=== PATIENT | male | born 1960 | race Caucasian/White ===

== ENCOUNTER 2024-08-23 05:25 | Emergency (ER) | payer SELFPAY ==
[2024-08-23 05:49] VITALS: BP 149/89
[2024-08-23] MEDS: MOTRIN 600 MG PO (07:24)
--- NOTE | 2024-08-23 07:26 | ED.GENMED ---
History of Present Illness
<Leona Zhang MD, Resident - Last Filed: 08/23/24 08:06>
General
Chief Complaint: Musculo-Skeletal Complaint
Source: patient
Exam Limitations: none
Time Seen by Provider: 08/23/24 06:30
Nursing documentation reviewed up to this point in time: agreed with
History of Present Illness
History of Present Illness:
Mr. Casimiro Jackman is a 64yoM with a PMH of scoliosis (s/p spinal fusion with rods 1990) who is presenting with an exacerbation of bilateral hip pain.
The b/l hip pain started 6 months ago, with the L>R. Overnight, the pain grew to 10/10 overnight, kept him awake, and radiated to his knees. He states his knee pain is mild. He reports the pain is constant, whether he is moving, staying still,
sitting, walking, or sleeping. He states his sleep is significantly reduced due to pain. He sleeps on one side until he can't tolerate the pain and then switches to the other side. He works in [employer] and lifts heavy regularly for his job.
He reports he held off seeking medical attention for hip pain for months due to not having health insurance. He states he does not have the option of employer-provided health insurance and had not heard of the [employer], but is very interested in
learning more. He has not sought medical care in decades. He states his social security benefits start in a few days on August 28.
His past surgical history includes vascular surgery for hyperhidrosis in his underarms and palms.
He asked for the exit door to smoke. He expressed disinterest in a nicotine patch.
Past History
<Leona Zhang MD, Resident - Last Filed: 08/23/24 08:06>
Past History
ED Past Surgical History: Other (rhinoplasty x3)
Social History
Tobacco: Smoker
Phy Exam
<Leona Zhang MD, Resident - Last Filed: 08/23/24 08:06>
Physical Exam
Physical Exam:
On MSK exam,
Hip flexion, SAMANTHA & FADIR limited by pain.
Gait non-ataxic, negative Tredelenberg. Patient states slower than usual
5/5 strength to flexion at hips, flexion and extension at knees
Full ROM to extension, abduction, adduction
Spine: full ROM to flexion, extension, and L & R flexion.
Vascular:
Pulses: 2+ R posterior tibial, 1+ L posterior tibial
Heart: RRR
Lungs: CTAB
GI: normal bowel sounds
Course
<Leona Zhang MD, Resident - Last Filed: 08/23/24 08:06>
Orders/Labs/Results
Orders:
Orders
08/23/24 07:07
Ibuprofen [Motrin] 600 mg PO NOW STA
Pelvis, 1 or 2 Views CR [CR Pelvis - 1 Or 2 Views ] Urgent
Comment:
Reason For Exam: pain
08/23/24 07:08
Thoracic Spine 3 Views CR [CR Thoracic Spine 3 Views] Urgent
Comment:
Reason For Exam: pain surgery in past
08/23/24 07:33
Urinalysis Reflex To Culture Urgent
Date Specimen was Collected: 08/23/24
Time Specimen was Collected: 07:27
Urine Microscopic Reflex Cult Urgent
08/23/24 08:00
Nicotine [Nicoderm Transdermal] 21 mg TRANSDERM DAILY
Abnormal Lab Results
08/23/24
07:33
Urine Ketones 3+ A
(Negative)
Ur Occult Blood Reflex 1+ A
(Negative)
Urine RBC 3-6 A /HPF
(0-2)
Urine Bacteria (Reflex) Few A
(Negative)
Urine Albumin (Reflex) 2+ A
(Neg - Trace)
Vital Signs
Initial and Last Documented VS:
Initial Vital Signs
Temp Pulse Resp BP Pulse Ox
98.5 F 89 16 149/89 98
08/23/24 05:49 08/23/24 05:49 08/23/24 05:49 08/23/24 05:49 08/23/24 05:49
Last Documented Vital Signs
Temp Pulse Resp BP Pulse Ox
98.5 F 89 16 149/89 98
08/23/24 05:49 08/23/24 05:49 08/23/24 05:49 08/23/24 05:49 08/23/24 07:28
<Sancho Dewey, DO - Last Filed: 08/23/24 08:09>
Orders/Labs/Results
Orders:
Orders
08/23/24 07:07
Ibuprofen [Motrin] 600 mg PO NOW STA
Pelvis, 1 or 2 Views CR [CR Pelvis - 1 Or 2 Views ] Urgent
Comment:
Reason For Exam: pain
08/23/24 07:08
Thoracic Spine 3 Views CR [CR Thoracic Spine 3 Views] Urgent
Comment:
Reason For Exam: pain surgery in past
08/23/24 07:33
Urinalysis Reflex To Culture Urgent
Date Specimen was Collected: 08/23/24
Time Specimen was Collected: 07:27
Urine Microscopic Reflex Cult Urgent
08/23/24 08:00
Nicotine [Nicoderm Transdermal] 21 mg TRANSDERM DAILY
Abnormal Lab Results
08/23/24
07:33
Urine Ketones 3+ A
(Negative)
Ur Occult Blood Reflex 1+ A
(Negative)
Urine RBC 3-6 A /HPF
(0-2)
Urine Bacteria (Reflex) Few A
(Negative)
Urine Albumin (Reflex) 2+ A
(Neg - Trace)
Vital Signs
Initial and Last Documented VS:
Initial Vital Signs
Temp Pulse Resp BP Pulse Ox
98.5 F 89 16 149/89 98
08/23/24 05:49 08/23/24 05:49 08/23/24 05:49 08/23/24 05:49 08/23/24 05:49
Last Documented Vital Signs
Temp Pulse Resp BP Pulse Ox
98.5 F 89 16 149/89 98
08/23/24 05:49 08/23/24 05:49 08/23/24 05:49 08/23/24 05:49 08/23/24 07:28
<Leona Zhang MD, Resident - Last Filed: 08/23/24 08:06>
MDM/Problems Addressed
MDM/Problems Addressed:
Mr. Jackman is a 64yoM with a PMH of scoliosis (s/p spinal fusion with rods in 1990) who presents with an acute exacerbation of bilateral hip pain. Given the bilateral degenerative hip changes on x-ray, osteoarthritis is the most likely cause.
Differential:
Osteoarthritis of b/l hip
Pain due to instrumentation from spinal fusion (scoliosis)
Nephrolithiasis
Plan:
Pelvis x-ray
Spinal x-ray to evaluate scoliosis instrumentation
Urinalysis
Motrin for pain control
Nicotine patch for nicotine withdrawal
Social work consult for health insurance education & schedule PCP visit at [facility] clinic for underinsured
Acute Exacerbation and/or Progression of Chronic Illness:
scoliosis
Acute Exacerbation and/or Progression of Chronic Illness: Other (b/l hip pain)
<Leona Zhang MD, Resident - Last Filed: 08/23/24 08:06>
*Pulse Oximetry
SaO2: 98
Oxygen Mode of Delivery: Room air
<Sancho Dewey, DO - Last Filed: 08/23/24 08:09>
*Radiology
Radiology exam reviewed: radiology read reviewed
*Pulse Oximetry
Patient hypoxic: no
*Critical Care Note
Total Time (30-74mins, 75-104mins- exclusive of procedures): Not Applicable
ED Attending Note
<Leona Zhang MD, Resident - Last Filed: 08/23/24 08:06>
-
Portions of this chart may have been created with voice recognition software.� Occasional wrong word or��sound alike� substitutions may have occurred due to the inherent limitations of voice recognition software.
<Sancho Dewey DO - Last Filed: 08/23/24 08:09>
ED Attending Note
Patient seen and examined by attending physician: Yes
I performed a history and physical exam of patient and discussed management with resident, I reviewed resident's note and agree with documented findings and plan of care.: Yes
ED Attending Note:
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
primary care he tells me x-rays are noted, will start on ibuprofen, will reach out to case management to try to set him up with PCP etc.
Discharge Plan
Departure
Patient Disposition: Home (Routine Discharge)
Date of Disposition: 08/23/24
Time of Disposition: 08:02
Patient with high blood pressure during this ER visit?: Yes
Discharge Problem:
Osteoarthritis, hip, bilateral
Instructions: Ibuprofen
Referrals:
UNKNOWN - PT DOES,NOT KNOW [Family Provider]
Activity Restrictions/Additional Instructions:
Sally Jackman, you came to the ED for bilateral hip pain.
You were diagnosed with bilateral osteoarthritis of the hips.
You were provided with ibuprofen for the pain. Social work was contacted to help you schedule a primary care visit and address your insurance concerns.
Please return if you experience worsening pain or lower extremity weakness or tingling.
Interventions
Interventions:
*Risk Screen - Suicide Last Done: 08/23/24 05:49
*General Assessment Last Done: 08/23/24 05:49
*Neglect/Abuse Screening Last Done: 08/23/24 05:49
*ED- Fall Risk Assessment Last Done: 08/23/24 05:49
*ED COVID-19 Vaccine History Last Done: 08/23/24 05:49
ED-Musculoskeletal Assessment Last Done: 08/23/24 06:30
Discharge Date and Time
Print Language: EGYPTIAN
[2024-08-23 07:50] LABS: Urine Character Clear (Clear)
[2024-08-23 08:01] LABS: Urine White Cell 0-2 /HPF (0-5)
--- NOTE | 2024-08-23 10:35 | CM ---
CM called Mr. Jackman at [phone] per MD request to follow up regarding his ER visit and insurance issue.
Pt stated he does not have an insurance and ion the [employer] system pt has insurance from self employer and this CM gave the pt his insurance name and number. Mr. Jackman expressed his disappointment and he stated he will follow up with his [employer] insurance.
Also, CN provided Mr. Jackman with [employer] insurance to apply.
Pt expressed his appreciation.
Pt stated he does not have PCP. [facility] information provided and pt stated he will schedule an appointment on Monday to follow up with his hip pain concerns.
== END 2024-08-23 08:27 | disposition home or self-care (01) ==
LOC: EMR 05:25
PROVIDERS: EMERGENCY PHYSICIAN Emergency Medicine
DX: M16.0 Bilateral primary osteoarthritis of hip (principal); Z98.1 Arthrodesis status; F17.200 Nicotine dependence, unspecified, uncomplicated; M41.9 Scoliosis, unspecified; Z59.71 Insufficient health insurance coverage
CPT/HCPCS: 99284; 72072; 72170; 81003; 81015